=== PATIENT | male | born 1960 | race Caucasian/White ===

== ENCOUNTER 2018-06-12 03:24 | Inpatient (IN) | payer MEDICARE, OTHER ==
[~2018-06-12] VITALS: Ht 182.9 cm; Wt 97.2 kg
[2018-06-12] VITALS (14 sets, daily range): BP systolic 92–167; BP diastolic 53–99
[2018-06-12 04:25] LABS: BASOPHIL % 0.2 % (0-2); PLATELET COUNT 164 x10^3mcL (130-400)
[2018-06-12 04:37] LABS: RED CELL DISTRIBUTION WIDTH 16.2 % (11.5-14.5)
[2018-06-12 04:48] LABS: ALKALINE PHOSPHATASE 253 U/L (46-116); ALT/SGPT 17 U/L (16-63); AST/SGOT 14 U/L (15-37); BILIRUBIN TOTAL 0.2 mg/dL (0.20-1.00); CALCIUM 7.4 mg/dL (8.5-10.1); CARBON DIOXIDE 19.5 mmol/L (21-32); CHLORIDE SERUM 97 mmol/L (98-107); SODIUM SERUM 126 mmol/L (136-145); TOTAL PROTEIN, SERUM 6.9 g/dL (6.4-8.2)
[2018-06-12 04:54] LABS: ALBUMIN 1.5 g/dL (3.4-5.0); GFR1 15 mL/min
[2018-06-12 04:56] LABS: GLUCOSE SERUM 1029 mg/dL (74-106)
[2018-06-12 04:57] LABS: CREATININE SERUM 4.3 mg/dL (0.7-1.3)
[2018-06-12 05:11] LABS: UA SPECIFIC GRAVITY 1.015 (1.005-1.035); microscopic required? YES; urine erythrocyte 2+ (NEGATIVE)
[2018-06-12 05:21] LABS: AMPHETAMINE QUAL UR POSITIVE (See below)
[2018-06-12] MEDS ORDERED: BACTRIM DS1 TAB PO (06:08)
[2018-06-12] MEDS ORDERED: ISOSORBIDE MONO30 MG PO (06:08)
[2018-06-12] MEDS ORDERED: TRAMADOL HYDROC1 TA1 PO (06:09)
[2018-06-12] MEDS ORDERED: METOPROLOL TART50 MG PO (06:09)
[2018-06-12 07:48] LABS: PHOSPHOROUS 5.2 mg/dL (2.5-4.9)
[2018-06-12 07:51] LABS: CHOLESTEROL/HDL RATIO 4.8
[2018-06-12 08:32] LABS: FREE T4 1.04 ng/dL (0.76-1.46); FREE THYROXINE INDEX 2.1 ug/dL (1.4-4.5); T4(THYROXINE) 5.7 ug/dL (4.7-13.3)
[2018-06-12 08:45] LABS: T3 TOTAL 0.71 ng/mL
[2018-06-12 08:51] LABS: CALCIUM 8.2 mg/dL (8.5-10.1); CARBON DIOXIDE 21.7 mmol/L (21-32); MAGNESIUM 1.9 mg/dL (1.8-2.4); PHOSPHOROUS 4.9 mg/dL (2.5-4.9); POTASSIUM SERUM 3.4 mmol/L (3.5-5.1)
[2018-06-12 09:03] LABS: CREATININE SERUM 4.1 mg/dL (0.7-1.3)
[2018-06-12 12:21] LABS: CALCIUM 8.2 mg/dL (8.5-10.1); CARBON DIOXIDE 22.8 mmol/L (21-32); PHOSPHOROUS 3.5 mg/dL (2.5-4.9); POTASSIUM SERUM 3.2 mmol/L (3.5-5.1)
[2018-06-12 16:55] LABS: CALCIUM 7.7 mg/dL (8.5-10.1); CARBON DIOXIDE 21.7 mmol/L (21-32); CREATININE SERUM 3.4 mg/dL (0.7-1.3); MAGNESIUM 1.8 mg/dL (1.8-2.4); PHOSPHOROUS 3.2 mg/dL (2.5-4.9); POTASSIUM SERUM 3.1 mmol/L (3.5-5.1)
[2018-06-12 20:28] LABS: CALCIUM 7.4 mg/dL (8.5-10.1); CREATININE SERUM 3.5 mg/dL (0.7-1.3); MAGNESIUM 1.6 mg/dL (1.8-2.4); PHOSPHOROUS 3.1 mg/dL (2.5-4.9); POTASSIUM SERUM 3.3 mmol/L (3.5-5.1)
[2018-06-13] VITALS (14 sets, daily range): BP systolic 100–156; BP diastolic 62–86
[2018-06-13 01:25] LABS: CALCIUM 7.5 mg/dL (8.5-10.1); CARBON DIOXIDE 18.2 mmol/L (21-32); CREATININE SERUM 3.5 mg/dL (0.7-1.3)
[2018-06-13 05:36] LABS: BASOPHIL % 0.7 % (0-2)
[2018-06-13 05:37] LABS: PLATELET COUNT 126 x10^3mcL (130-400); RED CELL DISTRIBUTION WIDTH 16.4 % (11.5-14.5)
[2018-06-13 05:43] LABS: CALCIUM 7.5 mg/dL (8.5-10.1); CARBON DIOXIDE 19.6 mmol/L (21-32); CREATININE SERUM 3.7 mg/dL (0.7-1.3); MAGNESIUM 1.7 mg/dL (1.8-2.4); PHOSPHOROUS 3.4 mg/dL (2.5-4.9)
[2018-06-14 03:40] VITALS: BP 163/86
[2018-06-14 07:06] LABS: BASOPHIL % 0.2 % (0-2); PLATELET COUNT 142 x10^3mcL (130-400)
[2018-06-14 07:09] LABS: CALCIUM 7.6 mg/dL (8.5-10.1); CARBON DIOXIDE 19.9 mmol/L (21-32); CREATININE SERUM 3.6 mg/dL (0.7-1.3); MAGNESIUM 1.7 mg/dL (1.8-2.4); PHOSPHOROUS 3.2 mg/dL (2.5-4.9); POTASSIUM SERUM 3.7 mmol/L (3.5-5.1)
[2018-06-14 08:00] VITALS: BP 136/84
[2018-06-14 12:00] VITALS: BP 157/81
[2018-06-14] MEDS ORDERED: ASPIRIN CHILDRE81 MG PO (13:09)
[2018-06-14] MEDS ORDERED: GABAPENTIN600 M1 PO (13:09)
[2018-06-14] MEDS ORDERED: GOOD SENSE OMEP20 MG PO (13:10)
[2018-06-14] MEDS ORDERED: LASIX40 MG PO (13:10)
[2018-06-14] MEDS ORDERED: ZOCOR20 MG PO (13:11)
[2018-06-14 16:00] VITALS: BP 150/78
[2018-06-14 20:17] VITALS: BP 147/79
[2018-06-15 00:25] VITALS: BP 153/72
[2018-06-15 04:40] VITALS: BP 156/70
[2018-06-15 05:25] LABS: BASOPHIL % 0.2 % (0-2); CALCIUM 7.8 mg/dL (8.5-10.1); CARBON DIOXIDE 18.4 mmol/L (21-32); CREATININE SERUM 3.8 mg/dL (0.7-1.3); PHOSPHOROUS 3.3 mg/dL (2.5-4.9); PLATELET COUNT 146 x10^3mcL (130-400); POTASSIUM SERUM 3.1 mmol/L (3.5-5.1)
[2018-06-15 05:30] LABS: RED CELL DISTRIBUTION WIDTH 16.8 % (11.5-14.5)
[2018-06-15 07:30] VITALS: BP 159/80
[2018-06-15 09:07] VITALS: Ht 182.9 cm; Wt 97.2 kg
[2018-06-15 12:00] VITALS: BP 163/80
[2018-06-15 16:15] VITALS: BP 163/77
[2018-06-15 23:08] VITALS: BP 150/90
[2018-06-16] VITALS (15 sets, daily range): BP systolic 78–108; BP diastolic 42–73
[2018-06-16 05:01] LABS: BASOPHIL % 0.1 % (0-2); PLATELET COUNT 181 x10^3mcL (130-400)
[2018-06-16 05:12] LABS: CALCIUM 7.6 mg/dL (8.5-10.1); PHOSPHOROUS 3.8 mg/dL (2.5-4.9)
[2018-06-16 05:16] LABS: CREATININE SERUM 4.3 mg/dL (0.7-1.3); RED CELL DISTRIBUTION WIDTH 16.9 % (11.5-14.5)
[2018-06-16 17:59] LABS: CALCIUM 7.4 mg/dL (8.5-10.1); CARBON DIOXIDE 20.4 mmol/L (21-32); POTASSIUM SERUM 3.5 mmol/L (3.5-5.1)
[2018-06-17 02:26] VITALS: BP 100/30
[2018-06-17 02:27] VITALS: BP 82/59
[2018-06-17 03:38] VITALS: BP 81/57
[2018-06-17 04:26] VITALS: BP 87/32
[2018-06-17 05:18] LABS: PLATELET COUNT 138 x10^3mcL (130-400)
[2018-06-17 05:26] LABS: RED CELL DISTRIBUTION WIDTH 18.3 % (11.5-14.5)
[2018-06-17 05:32] LABS: CALCIUM 7.1 mg/dL (8.5-10.1); POTASSIUM SERUM 5.4 mmol/L (3.5-5.1)
[2018-06-17 05:36] LABS: CREATININE SERUM 5.5 mg/dL (0.7-1.3)
[2018-06-17 06:07] LABS: BAND NEUTROPHIL 14 % (0-10); METAMYELOCTE 2 % (0-2); MONOCYTE 1 % (0-7); MYELOCYTE 2 % (0-2); SEGMENTED NEUTROPHILS 72 % (37-75)
[2018-06-17 06:12] LABS: PLATELET MORPHOLOGY PLATELETS DECREASED; acanthocyte (spur cell) 3+; rbc morphology (normal/abnorm) ABNORMAL (NORMAL)
[2018-06-17 06:13] VITALS: BP 86/53
== END 2018-06-17 08:30 | disposition expired | DRG 637 ==
LOC: ED 03:24 → IC 06:10 → DU 06-15 21:01 → IC 06-16 04:11
PROVIDERS: Emergency Medicine; Internal Medicine; ADMIT Family Medicine
PROC: 5A1945Z Respiratory Ventilation, 24-96 Consecutive Hours (ICD-10-PCS; principal; 2018-06-12)
PROC: 0BH17EZ Insertion of Endotracheal Airway into Trachea, Via Natural or Artificial Opening (ICD-10-PCS; 2018-06-12)
PROC: 5A1935Z Respiratory Ventilation, Less than 24 Consecutive Hours (ICD-10-PCS; 2018-06-16)
PROC: 0BH17EZ Insertion of Endotracheal Airway into Trachea, Via Natural or Artificial Opening (ICD-10-PCS; 2018-06-16)
PROC: 5A2204Z Restoration of Cardiac Rhythm, Single (ICD-10-PCS; 2018-06-16)
PROC: 05HN33Z Insertion of Infusion Device into Left Internal Jugular Vein, Percutaneous Approach (ICD-10-PCS; 2018-06-16)
PROC: B544ZZA Ultrasonography of Left Jugular Veins, Guidance (ICD-10-PCS; 2018-06-16)
DX: E11.10 Type 2 diabetes mellitus with ketoacidosis without coma (principal); G92 Toxic encephalopathy; E43 Unspecified severe protein-calorie malnutrition; N17.0 Acute kidney failure with tubular necrosis; J96.00 Acute respiratory failure, unspecified whether with hypoxia or hypercapnia; J69.0 Pneumonitis due to inhalation of food and vomit; D68.69 Other thrombophilia; F15.10 Other stimulant abuse, uncomplicated; F11.10 Opioid abuse, uncomplicated; E87.5 Hyperkalemia; I48.91 Unspecified atrial fibrillation; E78.5 Hyperlipidemia, unspecified; E83.39 Other disorders of phosphorus metabolism; I16.0 Hypertensive urgency; R56.9 Unspecified convulsions; R74.0 Nonspecific elevation of levels of transaminase and lactic acid dehydrogenase [LDH]; Z51.5 Encounter for palliative care; Z95.0 Presence of cardiac pacemaker; Z68.29 Body mass index [BMI] 29.0-29.9, adult; Z91.19 Patient's noncompliance with other medical treatment and regimen
CPT/HCPCS: 36556; 36600; 82962; 83880; 84439; 87046; 87046-59; 92526-GN; 92610; 97530-GP; A4628; G0480; J0153; J0282; J0360; J1160; J1642; J1644; J1815; J1885; J1940; J2060; J2250; J2270; J2370; J2543; J2704; J3010; J3370; J3480; J3490; J7030; J7040; J7042; J7060; J7620; Q0092